=== PATIENT | female | born 1940 | race Two or more races ===

== ENCOUNTER 2018-04-07 10:00 | Outpatient (CLI) | payer MEDICARE, BC | END 2018-04-07 23:59 | disposition home or self-care (01) | LOC: WOU 10:00 | PROVIDERS: ATTEND Specialist | DX: T81.31XD Disruption of external operation (surgical) wound, not elsewhere classified, subsequent encounter (principal); Z85.828 Personal history of other malignant neoplasm of skin | CPT/HCPCS: G0463; Z7610 ==